=== PATIENT | male | born 1955 | race American Indian/Alaskan Native ===

== ENCOUNTER 2018-04-04 12:59 | Emergency (ER) | payer MEDICARE ==
--- NOTE | 2018-04-04 13:26 | Emergency Department Report ---
HPI - General Chief Complaint: Neuro Symptoms/Deficit Time Seen by Provider: 04/04/18 13:09 - HPI HPI: 63-year-old -Portuguese male presents to the emergency department by EMS from home with complaint of some transient blurry and/or double vision. The patient says that he was playing Spades on his cell phone when he started to notice that things were blurry and/or appeared double. He denies any headache, facial droop, numbness, weakness or any other complaints or neurological deficits. He has a past medical history of diabetes, hypertension, hyperlipidemia. His symptoms resolved upon presentation to the emergency department. He did not take anything for his symptoms prior to arrival. No recent travel or sick contacts at home. ED Past Medical Hx - Past Medical History Previous Medical History?: Yes Hx Hypertension: Yes Hx Diabetes: Yes - Surgical History Past Surgical History?: No - Social History Smoking Status: Never Smoker Substance Use Type: None - Medications Home Medications: Home Medications Medication Instructions Recorded Confirmed Last Taken Type Amlodipine Besylate [Norvasc] 10 mg PO QDAY 04/04/18 04/04/18 Unknown History Aspirin [Ecotrin] 81 mg PO QDAY #100 tablet. 04/04/18 Unknown Rx Atorvastatin Calcium [Lipitor] 20 mg PO DAILY 04/04/18 04/04/18 Unknown History Doxazosin Mesylate [Cardura] 2 mg PO HS 04/04/18 04/04/18 Unknown History Insulin NPH/Regular [Novolin 70/30] 40 units SUB-Q BID 04/04/18 04/04/18 Unknown History Lisinopril [Zestril] 40 mg PO QDAY 04/04/18 04/04/18 Unknown History Metformin HCl [Glucophage] 1,000 mg PO BID 04/04/18 04/04/18 Unknown History ED Review of Systems ROS: Stated complaint: BLURRED VISION Other details as noted in HPI Comment: All other systems reviewed and negative Constitutional: denies: chills, fever Eyes: vision change. denies: eye pain, eye discharge ENT: denies: ear pain, throat pain Respiratory: denies: cough, shortness of breath Cardiovascular: denies: chest pain, palpitations Gastrointestinal: denies: abdominal pain, vomiting Genitourinary: denies: dysuria, frequency Musculoskeletal: denies: back pain, arthralgia Skin: denies: rash, lesions Neurological: denies: headache, weakness, numbness, confusion Physical Exam - Physical Exam Vital Signs: Vital Signs 04/04/18 13:03 Temperature 98.3 F Pulse Rate 72 Respiratory 16 Rate Blood Pressure 167/102 O2 Sat by Pulse 96 Oximetry Physical Exam: GENERAL: The patient is well-developed well-nourished. HEENT: Normocephalic. Atraumatic. Patient has moist mucous membranes. EYES: Extraocular motions are intact. Pupils are equal and reactive to light bilaterally. No nystagmus. NECK: Supple. Trachea is midline. CHEST/LUNGS: Clear to auscultation. There is no respiratory distress noted. HEART/CARDIOVASCULAR: Regular. There is no tachycardia. There is no obvious mu rmur. ABDOMEN: Abdomen is soft, nontender. Patient has normal bowel sounds. There is no abdominal distention. SKIN: Skin is warm and dry. NEURO: The patient is awake, alert, and oriented. The patient is cooperative. The patient has no focal neurologic deficits. The patient has normal speech. C ranial nerves II through XII grossly intact. No pronator drift. No dysmetria. MUSCULOSKELETAL: There is no tenderness or deformity. There is no limitation range of motion. There is no evidence of acute injury. ED Course Vital Signs 04/04/18 13:03 Temperature 98.3 F Pulse Rate 72 Respiratory 16 Rate Blood Pressure 167/102 O2 Sat by Pulse 96 Oximetry - Consultations Consultation #1: I spoke with the telemedicine neurologist, Dr. Mahoney, who saw the patient in the room for examination via television moniter. She agrees that the patient has a NIH stroke scale of 0 but feels that the patient should be admitted to the hospital for further evaluation, MRI, and further "stroke workup" since it is diplopia versus blurry vision. 04/04/18 16:21 ED Medical Decision Making - Lab Data Result diagrams: 04/04/18 13:11 04/04/18 13:11 - Medical Decision Making Patient presents to the emergency department with complaint of some diplopia that started prior to arrival and resolved upon presentation. He otherwise has no focal, motor or neurological deficits and is a NIH stroke scale of 0. CT scan of the head did not show any bleed, shift, mass, ischemia or any acute process. And shows a 7 mm chronic right lacunar infarct. Labs are mostly unremarkable and do not show any etiology of his symptoms. Vital signs stable throughout his ED course. The patient was seen by the telemedicine neurologist who recommended admission for further evaluation and further stroke workup. The patient has been presented to the admitting hospitalist, Dr. Rodriguez, with my plans for admission. - Differential Diagnosis TIA, Myasthenia gravis, CVA, Dysrythmia Critical Care Time: No Critical care attestation.: If time is entered above; I have spent that time in minutes in the direct care of this critically ill patient, excluding procedure time. ED Disposition Clinical Impression: Diplopia Hypertension Qualifiers: Hypertension type: essential hypertension Qualified Code(s): I10 - Essential (primary) hypertension Disposition: OP ADMIT IP TO THIS HOSP Is pt being admited?: Yes Condition: Fair Instructions: Hypertension (ED) Prescriptions: Aspirin [Ecotrin] 81 mg PO QDAY #100 tablet. Time of Disposition: 16:24 - Assessment Assessment Interval: Baseline - Level of Consciousness 1a. Level of Consciousness: alert/keenly responsive - LOC Questions 1b. LOC Questions: answers both correctly - LOC Command 1c. LOC Commands: performs tasks correctly - Best Gaze 2. Best Gaze: normal - Visual 3. Visual: no visual loss - Facial Palsy 4. Facial Palsy: normal symmetrical movement - Motor Arm 5b. Motor Arm Right: no drift 5a. Motor Arm Left: no drift - Motor Leg 6b. Motor Leg Right: no drift 6a. Motor Leg Left: no drift - Limb Ataxia 7. Limb Ataxia: absent - Sensory 8. Sensory: normal - Best Language 9. Best Language: no aphasia - Dysarthria 10. Dysarthria: normal - Extinction and Inattention 11. Extinction/Inattention: no abnormality - Scoring Total Score: 0 Stroke Severity: No Stroke Symptoms
[2018-04-04 13:28] LABS: Basophils # (Auto) 0.1 K/mm3 (0.0-0.1); Basophils % (Auto) 0.9 % (0.0-1.8); Eosinophils # (Auto) 0.1 K/mm3 (0.0-0.4); Eosinophils % (Auto) 0.7 % (0.0-4.3); Hematocrit 41.5 % (35.5-45.6); Hemoglobin 14.1 gm/dl (11.8-15.2); Lymphocytes # (Auto) 1.7 K/mm3 (1.2-5.4); Lymphocytes % (Auto) 22.6 % (13.4-35.0); Mean Corpuscular HGB Conc 34 % (32-34); Mean Corpuscular Volume 91 fl (84-94); Monocytes # (Auto) 0.4 K/mm3 (0.0-0.8); Monocytes % (Auto) 4.9 % (0.0-7.3); Platelet Count 173 K/mm3 (140-440); Red Blood Count 4.55 M/mm3 (3.65-5.03); Red Cell Distribution Width 12.8 % (13.2-15.2)
[2018-04-04 13:36] LABS: INR 0.99 (0.87-1.13)
[2018-04-04 13:37] LABS: Thrombin Time 15.5 Sec. (15.1-19.6)
[2018-04-04 13:57] LABS: BUN/Creatinine Ratio 11; Blood Urea Nitrogen 11 mg/dL (9-20); Calcium 9.1 mg/dL (8.4-10.2); Hemolysis Index 18
--- NOTE | 2018-04-04 14:11 | Cat Scan Report ---
CT HEAD WITHOUT CONTRAST: HISTORY: Neurological deficit. TECHNIQUE: Sequential 2.5mm CT images. COMPARISON: none. FINDINGS: Cerebral Parenchyma: A 7 mm area of decreased density is identified in the right thalamus on image 31. This has the appearance of a chronic lacunar infarct. The remaining brain parenchyma is within normal limits. The guan-white interface is well defined. Cerebellum: Within normal limits. Brainstem: Within normal limits. Ventricles: Normal. Sella: Normal. Extra-axial spaces: Normal. Basal Cisterns: Normal. Intracranial Hemorrhage: None. Midline Shift: None. Calvarium: Normal. Sinuses: Normal. Mastoid Air Cells: Normal. Visualized Orbits: Normal. IMPRESSION: 7 mm chronic lacunar infarct in the right thalamus. No acute intracranial process is identified.
[2018-04-04] MEDS ORDERED: K-DUR PO ONE (15:19)
--- NOTE | 2018-04-04 16:12 | Event Note ---
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 D/c on Ecospriri 81 mg po qd
[2018-04-04 16:32] VITALS: BP 157/92
== END 2018-04-04 16:45 | disposition admitted as inpatient to this hospital (09) ==
LOC: ED 12:59
DX: H53.2 Diplopia (principal); I10 Essential (primary) hypertension; E11.9 Type 2 diabetes mellitus without complications
CPT/HCPCS: 36415; 70450; 80048; 84443; 84484; 85025; 85610; 85670; 85730; 93005; 93010